=== PATIENT | female | born 1975 | race African-American/Black ===

== ENCOUNTER 2021-11-25 18:49 | Emergency (ER) | payer BC, SELFPAY ==
[2021-11-25 19:00] VITALS: BP 131/74; PULSE 66; RESP 16; TEMP 36.8; O2SAT 99
[2021-11-25] MEDS: LIDOCAINE HCL 1% LOCAL INJ 20 ML VIAL 5 ML INFILTRATE (19:21)
--- NOTE | 2021-11-25 19:23 | ED.WOUNDLAC ---
HPI - Wound/Laceration General Chief Complaint: Wound/Laceration Stated Complaint: Cut finger on left hand Time Seen by Provider: 11/25/21 19:15 Source: patient, family, RN notes reviewed and old records reviewed Mode of arrival: ambulatory Limitations: no limitations History of Present Illness HPI narrative: 46-year-old female who presents to [facility] with laceration 1 cm horizontal on the left index finger at PIP joint dorsally when she reached into trash can to push material down and cut on piece of broken glass.Patient reports that her tetanus is up to date. Patient has full mobility of her left index finger with no tingling or numbness to her left index finger or hand. Onset (ago): hour(s) (within last 2 hour) Location: other (left index finger) Extremity Location: Left: hand (index finger) Place: home Patient tetanus UTD: Yes Treatments prior to arrival: bandage Related Data Home Medications Medication Instructions Recorded Confirmed diclofenac sodium 75 mg 75 mg PO DAILY 11/25/21 11/25/21 tablet,delayed release Allergies Allergy/AdvReac Type Severity Reaction Status Date / Time latex Allergy Intermediate Itching Verified 11/25/21 18:53 Review of Systems Review of Systems: CONSTITUTIONAL: Denies fever, chills, or sweats. EYES: Denies visual changes, redness, or discharge. ENT: Denies rhinorrhea, congestion, sore throat, or otalgia. CARDIOVASCULAR: Denies chest pain, palpitations, or edema. RESPIRATORY: Denies cough or dyspnea. GASTROINTESTINAL: Denies abdominal pain, nausea, vomiting, or diarrhea. GENITOURINARY: Denies dysuria or hematuria. SKIN: Denies rash or itching.laceration to dorsal aspect of left index finger MUSCULOSKELETAL: Denies back pain, joint pain, or myalgia. NEUROLOGIC: Denies headache, numbness, or weakness. PSYCHIATRIC: Denies anxiety or depression. All systems reviewed & are unremarkable except as noted in HPI and below PMFSH Past Medical History Medical History (Updated 11/29/21 @ 10:46 by Modesta Hernandez NP) Anxiety and depression Back pain Burn of right hand Surgical History Surgical History (Updated 11/29/21 @ 10:42 by Modesta Hernandez NP) H/O dilation and curettage History of hysterectomy Social History Social History (Updated 11/29/21 @ 10:43 by CARLOS Christianson Smoking status: Never smoker Alcohol intake: current Alcohol use details: social Substance use type: does not use Living arrangements: with family Gender identity (if verbalized by the patient): Female Comments At time of signature agree with nursing documentation of past medical surgical, social and family history. There is no relevant family history pertinent to presenting complaint. Exam Narrative: GENERAL: Well-appearing, well-nourished, and in no acute distress. HEAD: Normocephalic, atraumatic. EYES: PERRLA and EOMI. ENT: Nares clear, no rhinorrhea or epistaxis. Mucous membranes moist.TM's normal, throat pink with no lesions or exudates or swelling NECK: Supple. no lymphadenopathy CHEST: Clear to auscultation. No respiratory distress.SAO2 99% on room air HEART: Regular rate and rhythm. No murmur heard. Normal peripheral pulses. ABDOMEN: Soft, nontender, nondistended, normal active bowel sounds. EXTREMITIES: Normal range of motion. No edema. SKIN: Warm, dry, no rash. Laceration to left dorsal index finger horizontal 1cm length along PIP area, sensation circulation and mobility intact to finger NEURO: No focal deficits. Alert and oriented x3. Course Course Level of Care: Express Care Visit Vital Signs Vital signs: Vital Signs Temperature 36.8 C 11/25/21 19:00 Pulse Rate 66 11/25/21 19:00 Respiratory Rate 16 11/25/21 19:00 Blood Pressure 131/74 11/25/21 19:00 Pulse Oximetry 99 11/25/21 19:00 Oxygen Delivery Room Air 11/25/21 19:00 Temperature 36.8 C 11/25/21 19:00 Pulse Rate 66 11/25/21 19:00 Respiratory Rate 16 11/25/21 19:00 Blood Pre
== END 2021-11-25 19:50 | disposition home or self-care (01) ==
PROVIDERS: Emergency Provider Registered Nurse
DX: S61.211A Laceration without foreign body of left index finger without damage to nail, initial encounter (principal); W25.XXXA Contact with sharp glass, initial encounter
CPT/HCPCS: 12001; 99212; G0463